=== PATIENT | female | born 1960 | race Caucasian/White ===

== ENCOUNTER 2019-01-26 16:09 | Emergency (ER) | payer OTHER ==
[~2019-01-26] VITALS: Wt 70.0 kg
[2019-01-26 16:26] VITALS: BP 160/89; PULSE 99; RESP 18
[2019-01-26] MEDS ORDERED: CHOL400T10 PO (17:35)
[2019-01-26] MEDS ORDERED: MUPI15CR9 TOP (17:35)
[2019-01-26] MEDS ORDERED: NAPR-985 PO (17:35)
[2019-01-26] MEDS ORDERED: ELIM TOP (17:35)
[2019-01-26] MEDS ORDERED: GABA-528 PO (17:35)
[2019-01-26] MEDS ORDERED: SULF1TAB31 PO (17:35)
--- NOTE | 2019-01-26 17:37 | ERD ---
ER Documentation Chief Complaint Chief Complaint RASH HPI 58-year-old female presents with intermittent rashes over the last month. Her partner has been treated for scabies as well as staph infection. Her lesions are similar. She has been in temporary housing in [facility] but was recently transferred near this hospital. She is requesting refill of her diabetes medication as well, Glucophage 500 mg twice a day. Denies fevers, jesse st pain, vomiting, shortness of breath. She has a history of arthritis of her hands as well. She denies any recent injuries. She is taking her part and is Naprosyn with pain relief. ROS All systems reviewed and are negative except as per history of present illness. Medications Home Meds Active Scripts Metformin* (Glucophage*) 500 Mg Tab, 500 MG PO BID, #60 TAB Prov:STEPHEN TORRES MD 01/26/19 Mupirocin Calcium* (Mupirocin*) 2% - 15 Gram Cream..g., 1 APPLIC TOP TID, #1 TUB Prov:STEPHEN TORRES MD 01/26/19 Naproxen* (Naprosyn*) 500 Mg Tablet, 500 MG PO BID PRN for PAIN AND/OR INFLAMMATION, #30 TAB Prov:STEPHEN TORRES MD 01/26/19 Permethrin* (Elimite*) 5% Cr, 1 APPLIC TOP ONCE for 1 Day, TUB Prov:STEPHEN TORRES MD 01/26/19 Sulfamethoxazole/Trimethoprim* (Bactrim Ds* Tablet) 1 Each Tablet, 1 TAB PO BID for 10 Days, TAB Prov:STEPHEN TORRES MD 01/26/19 Discontinued Scripts Cholecalciferol* (Vitamin D*) 400 Unit Tablet, 800 UNIT PO DAILY, #30 TAB Prov:STEPHEN TORRES MD 01/26/19 Gabapentin* (Gabapentin*) 800 Mg Tablet, 800 MG PO TID, #90 TAB Prov:STEPHEN TORRES MD 01/26/19 Allergies Allergies: Coded Allergies: No Known Allergy (Unverified , 01/26/19) FmHx Family History: No diabetes, No coronary disease, No other Physical Exam Vitals Vital Signs Date Temp Pulse Resp B/P (MAP) Pulse Ox O2 O2 Flow FiO2 Time Delivery Rate 01/26/19 100.0 99 18 160/89 99 16:26 (112) Physical Exam Const: No acute distress Head: Atraumatic Eyes: Normal Conjunctiva ENT: Normal External Ears, Nose and Mouth. Neck: Full range of motion. No meningismus. Resp: Clear to auscultation bilaterally Cardio: Regular rate and rhythm, no murmurs Abd: Soft, non tender, non distended. Normal bowel sounds Skin: No petechiae or rashes. scattered erythematous superficial skin lesions some unroofed. No induration or streaking. No fluctuance. No obvious serpiginous lesions. Back: No midline or flank tenderness Ext: No cyanosis, or edema mild synovitis of the MCP and PIPs without erythema, warmth, deformities. Neur: Awake and alert Psych: Normal Mood and Affect Results 24 hrs Current Medications Medications Dose Sig/Gustavo Start Time Status Last (Trade) Ordered Route PRN Stop Time Admin Dose Reason Admin Permethrin 1 applic ONCE ONCE 01/26/19 (Nix) TOP 18:00 01/26/19 18:01 1 tab ONCE ONCE 01/26/19 Trimethoprim/ PO 18:00 01/26/19 18:01 Sulfamethoxaz ole (Bactrim (Ds)) Procedures/MDM Patient presents with signs and symptoms of skin lesions consistent with staph infection. She may have scabies as well and will be treated empirically with permethrin. We will give a prescription of Bactrim, Naprosyn for her arthritis pain, recommend agents for primary care follow-up and return precautions for fevers, vomiting, new worsening symptoms. She has no signs or symptoms of necrotizing fasciitis, sepsis, SIRS criteria, additional concerning signs or symptoms. We will refill her Glucophage as well. She has no signs or symptoms to suggest sepsis or DKA. The patient was stable with no new complaints during the ER course. Clinically, there is no current evidence to suggest meningitis, sepsis, acute abdomen, pneumonia, stroke, acute coronary syndrome, pulmonary embolism, aortic dissection or any other emergent condition appearing to require further evaluation or hospitalization. Patient counseled regarding my diagnostic impression and care plan. Prior to discharge all questions answered. Pt agrees with treatment plan and understands strict return precautions. Pt is instructed to follow up with primary care provider within 24-48 hours. Precautionary instructions provided including instructions to return to the ER if not improving or for any worsening or changing symptoms or concerns. Disclaimer: Inadvertent spelling and grammatical errors are likely due to EHR/dictation software use and do not reflect on the overall quality of patient care. Also, please note that the electronic time recorded on this note does not necessarily reflect the actual time of the patient encounter. Departure Diagnosis: Primary Impression: Cellulitis Site of cellulitis: extremity Site of cellulitis of extremity: upper extremity Laterality: unspecified laterality Qualified Codes: L03.119 - Cellulitis of unspecified part of limb Additional Impression: Rash Condition: Stable Patient Instructions: Scabies, Cellulitis, Dermatitis, Non-Specific Referrals: [facility] YOU HAVE RECEIVED A MEDICAL SCREENING EXAM AND THE RESULTS INDICATE THAT YOU DO NOT HAVE A CONDITION THAT REQUIRES URGENT TREATMENT IN THE EMERGENCY DEPARTMENT. FURTHER EVALUATION AND TREATMENT OF YOUR CONDITION CAN WAIT UNTIL YOU ARE SEEN IN YOUR DOCTORS OFFICE WITHIN THE NEXT 1-2 DAYS. IT IS YOUR RESPONSIBILITY TO MAKE AN APPOINTMENT FOR FOLOW-UP CARE. IF YOU HAVE A PRIMARY DOCTOR --you should call your primary doctor and schedule an appointment IF YOU DO NOT HAVE A PRIMARY DOCTOR YOU CAN CALL OUR PHYSICIAN REFERRAL HOTLINE AT IF YOU CAN NOT AFFORD TO SEE A PHYSICIAN YOU CAN CHOSE FROM THE FOLLOWING [facility] [address] [facility]. [facility] [address] [facility] [facility] [address] [facility]. [facility] [address] [facility]. [facility] [phone] [facility]. [facility]. [address] Additional Instructions: See primary care for further evaluation treatment. Recheck otherwise for fevers, worsening redness, swelling, new or worsening symptoms. STEPHEN TORRES MD January 26, 2019 17:37
[2019-01-26] MEDS ORDERED: METF-849 PO (17:49)
[2019-01-26] MEDS ORDERED: PERMETHRIN 1% 59 ML TOP ONE (18:00)
[2019-01-26] MEDS ORDERED: TRIMETHOPRIM/SULFAMETHOX (DS) TAB PO ONE (18:00)
== END 2019-01-26 18:13 | disposition home or self-care (01) ==
LOC: FTE 16:09
DX: L03.119 Cellulitis of unspecified part of limb (principal); Z79.84 Long term (current) use of oral hypoglycemic drugs
CPT/HCPCS: Z7502; Z7610; 99283